=== PATIENT | male | born 1970 | race Two or more races ===

== ENCOUNTER 2019-09-27 11:40 | Emergency (ER) | payer MEDICAID ==
[~2019-09-27] VITALS: Ht 185.4 cm; Wt 88.9 kg
[2019-09-27] MEDS ORDERED: SODIUM CHLORIDE 0.9% 1,000 ML IVB ONE (12:12)
[2019-09-27] MEDS ORDERED: PANTOPRAZOLE 40 MG/10 ML VIAL INJ IV STA (12:12)
[2019-09-27] MEDS ORDERED: PROCHLORPERAZINE EDISYLATE 5 MG/ML 2ML VIAL IV ONE (12:15)
[2019-09-27] MEDS ORDERED: MORPHINE SULFATE 4 MG/ML SYR/VIAL IV ONE (12:15)
[2019-09-27 12:58] LABS: Urine Bacteria NONE SEEN /hpf (None Seen); Urine Blood Negative /uL (Negative); Urine Specific Gravity 1.008 (1.001-1.035); Urine WBC None Seen /hpf (0 - 3)
[2019-09-27 13:10] LABS: Amphetamine Screen, Urine NEGATIVE (NEGATIVE); Barbiturate Scree,Urine NEGATIVE (NEGATIVE); Benzodiazephine Screen, Urine NEGATIVE (NEGATIVE); Cannabinoid Screen, Urine POSITIVE (NEGATIVE); Cocaine Screen, Urine NEGATIVE (NEGATIVE); Opiate Scree,Urine NEGATIVE (NEGATIVE); Phencyclidine Screen, Urine NEGATIVE (NEGATIVE)
[2019-09-27 13:33] LABS: Basophils # (auto) 0.1 10 ^3/uL (0-0.2); Eosinophils # (auto) 0 10 ^3/uL (0-0.8); Eosinophils % (auto) 0.2 % (0.0-7.0); Monocytes # (auto) 0.6 10 ^3/uL (0-1.3); Neutrophils # (auto) 6.6 10 ^3/uL (1.6-8.6); Nucleated Red Blood Cells % 0.1 %
[2019-09-27 13:35] LABS: Basophils % (auto) 0.7 % (0.0-2.0); Hematocrit 50.3 % (41.0-53.0); Hemoglobin 16.2 g/dL (13.5-17.5); Lymphocytes # (auto) 2.2 10 ^3/uL (0.4-5.4); Mean Corpuscular Hemoglobin 24.8 pg (28.0-32.0); Mean Corpuscular Hgb Conc. 32.2 g/dL (32.0-36.0); Mean Corpuscular Volume 77.2 fL (80.0-100.0); Monocytes % (auto) 6.5 % (0.0-12.0); Neutrophils % (auto) 69.6 % (37.0-80.0); Platelet Count (auto) 324 10^3/uL (140-450); Red Blood Cells 6.52 10^6/uL (4.5-5.90); Red Cell Distribution Width 17.4 % (11.8-14.3); White Blood Cell 9.5 10^3/uL (4.4-10.8)
[2019-09-27 13:51] LABS: Albumin 4.2 g/dL (3.4-5.0); Anion Gap 3 (5-15); Blood Urea Nitrogen 9 mg/dL (7-18); Calcium 9.7 mg/dL (8.5-10.1); Carbon Dioxide 29 mmol/L (21-32); Chloride 105 mmol/L (98-107); Glucose 101 mg/dL (74-106); Lipase 108 U/L (73-393); Potassium 4.4 mmol/L (3.5-5.1); Sodium 137 mmol/L (136-145)
[2019-09-27 13:57] LABS: Alanine Aminotransferase 70 U/L (16-61); Alkaline Phosphatase 76 U/L (45-117); Aspartate Aminotransferase 27 U/L (15-37); BUN/Creatinine Ratio 6.2; Bilirubin, Total 0.7 mg/dL (0.2-1.0); GFR African American 67 mL/min; GFR Non-African American 55 mL/min
[2019-09-27 14:45] VITALS: BP 147/96
== END 2019-09-27 14:48 | disposition home or self-care (01) ==
LOC: ER 11:40
DX: F12.188 Cannabis abuse with other cannabis-induced disorder (principal); R10.13 Epigastric pain; R11.2 Nausea with vomiting, unspecified
CPT/HCPCS: 36415; 74176; 80053; 80307; 81001; 83690; 84484; 85025; 93005

== ENCOUNTER 2025-03-29 07:10 | Emergency (ER) | payer MEDICAID ==
[~2025-03-29] VITALS: Ht 185.4 cm; Wt 100.0 kg
[2025-03-29 07:13] VITALS: TEMP 97.5
--- NOTE | 2025-03-29 07:27 | ED.PDOC ---
Musculoskeletal HPI Comments A 55 YEAR OLD MALE PRESENTS TO THE ED WITH COMPLAINT OF LEG PAIN. PATIENT REPORTS THAT HE HAS BEEN EXPERIENCING RIGHT LEG PAIN THAT RADIATES DOWN HIS LEG FOR THE PAST 2 DAYS. PATIENT RELAYS THAT HE HAS HISTORY OF CHRONIC LOWER BACK PAIN AND SCIATICA X 2 YEARS, CURRENTLY GOING TO PAIN MANAGEMENT. PATIENT STATES HE IS PRESCRIBED NORCO AND GABAPENTIN, BUT NO RELIEF HAS BEEN NOTED WHEN TAKING HIS MEDICATION AT HOME. PATIENT DENIES FALL, INJURY, SHORTNESS OF BREATH, CHEST PAIN, ABDOMINAL PAIN, NAUSEA, VOMITING, HEADACHE, OR OTHER COMPLAINTS. NO OTHER SYMPTOMS OR MODIFYING FACTORS AT THIS TIME. PATIENT IS ALERT, ORIENTED X 4, AND HAS STEADY GAIT. Chief Complaint: Lower Extremity Time Seen by MD: 07:24 Reviewed Notes: Nurses Notes, Medications, Allergies Allergies: Coded Allergies: NO KNOWN ALLERGIES (Unverified , 06/02/17) Home Meds Active Scripts Prednisone (Prednisone) 20 Mg Tab, 40 MG PO DAILY, #20 TAB Prov:ROSA MEYERSSHERON AUSTIN 03/29/25 Information Source: Patient Mode of Arrival: Wheelchair Location: Right Extremity Location: Leg Timing: Days Prehospital treatment: None Severity: Moderate Able to Move Extremity: No Bear Weight: Limited Pain: Moderate Mechanism: Spontaneous Circumstances: Spontaneous Onset of Symptoms: Spontaneous Symptoms: Pain DVT Risk Factors: NONE Associated signs and symptoms: Leg pain, Other (BACK PAIN ) Past Medical History PAST MEDICAL HISTORY: HTN Past Medical History (Other): SCIATICA, CHRONIC LOWER BACK PAIN Surgical History: Denies all surgeries Family History Family History: Reviewed,noncontributory to illness Family History (Other): Sickle cell disease Social History Smoker: Cigarettes, Less Than 1 Pack/Day Alcohol: Occasionally Drugs: Marijuana Lives In: Home Constitutional: denies: chills, diaphoresis, fatigue, fever, malaise, sweats, weakness, others EENTM: denies: blurred vision, double vision, ear bleeding, ear discharge, ear drainage, ear pain, ear ringing, eye pain, eye redness, hearing loss, mouth pain, mouth swelling, nasal discharge, nose bleeding, nose congestion, nose pain, photophobia, tearing, throat pain, throat swelling, voice changes, others Respiratory: denies: cough, hemoptysis, orthopnea, SOB at rest, shortness of breath, SOB with excertion, stridor, wheezing, others Cardiovascular: denies: chest pain, dizzy spells, diaphoresis, Dyspnea on exertion, edema, irregular heart beat, left arm pain, lightheadedness, palpitations, PND, syncope, others Gastrointestinal: denies: abdomen distended, abdominal pain, blood streaked bowels, constipated, diarrhea, dysphagia, difficulty swallowing, hematemesis, melena, nausea, poor appetite, poor fluid intake, rectal bleeding, rectal pain, vomiting, others Genitourinary: denies: burning, dysuria, flank pain, frequency, hematuria, incontinence, penile discharge, penile sore, pain, testicle pain, testicle swelling, urgency, others Neurological: denies: dizziness, fainting, headache, left sided numbness, left sided weakness, numbness, paresthesia, pre-existing deficit, right sided numbness, right sided weakness, seizure, speech problems, tingling, tremors, weakness, others Musculoskeletal: reports: back pain, muscle pain, others (RT LEG PAIN); denies: gout, joint pain, joint swelling, muscle stiffness, neck pain Integumetry: denies: bruises, change in color, change in hair/nails, dryness, laceration, lesions, lumps, rash, wounds, others Allergic/Immunocompromised: denies: Difficulty Healing, Frequent Infections, Hives, Itching, others Hematologic/Lymphatic: denies: anemia, blood clots, easy bleeding, easy bruising, swollen glands, others Endocrine: denies: excessive hunger, excessive sweating, excessive thirst, excessive urination, flushing, intolerance to cold, intolerance to heat, unexplained weight gain, unexplained weight loss, others Psychiatric: denies: anxiety, bipolar disorder, depression, hopeless, panic disorder, schizophrenia, sleepless, suicidal, others All Other Systems: Reviewed and Negative Physical Exam General Appearance: No Apparent Distress, Normal HEENT: Normal ENT Inspection, PERRL/EOMI Neck: Full Range of Motion, Non-Tender, Normal, Normal Inspection Respiratory: Chest Non-Tender, Lungs Clear, No Accessory Muscle Use, No Respiratory Distress, Normal Breath Sounds Cardiovascular: No Edema, No JVD, No Murmur, No Gallop, Normal Peripheral Pulses, Regular Rate/Rhythm Breast Exam: Deferred Gastrointestinal: No Organomegaly, Non Tender, No Pulsatile Mass, Normal Bowel Sounds, Soft Genitalia: Deferred Pelvic: Deferred Rectal: Deferred Extremities: No calf tenderness, Normal capillary refill, Normal inspection, Normal range of motion, Non-tender, No pedal edema, Other (NO RIGHT LOWER LEG REDNESS, SWELLING AND DVT SIGNS. ) Musculoskeletal : Location: Bilateral Extremity Location: Back Apperance: Tenderness: Moderate (TENDERNESS AND MUSCLE SPASM ON LOWER BACK, NO BONY TENDERNESS, SWELLING AND DEFORMITY. ) Neurologic: Alert, card player II-XII nml as Tested, No Motor Deficits, Normal Affect, Normal Mood, No Sensory Deficits Cerebellar Function: Normal Reflexes: Normal Skin: Dry, Normal Color, Warm Peripheral Pulses: 2+ carotid (R), 2+ carotid (L), 2+ dorsalis pedis (R), 2+ dorsalis pedis (L) Lymphatic: No Adenopathy Was a procedure done? Was a procedure done?: No Differential Diagnosis EXT Differential Diagnosis: Sprain, Contusion, Strain, Other (DDD OF LOW BACK, LUMBAR RADICULOPATHY) Other Differential Diagnosis SCIATICA X-Ray, Labs, Meds, VS Vital Signs Date Time Temp Pulse Resp B/P (MAP) Pulse Ox O2 Delivery O2 Flow Rate FiO2 03/29/25 08:29 73 16 150/90 03/29/25 07:48 75 19 128/88 (101) 100 03/29/25 07:47 75 19 128/88 03/29/25 07:13 97.5 86 16 160/86 100 97.5 Current Medications Medications (Trade) Dose Ordered Sig/Nikita Route Start Time Stop Time Status Last Admin Hydromorphone HCl (Dilaudid Injection) 2 mg ONCE ONCE IM 03/29/25 07:30 03/29/25 07:31 DC 03/29/25 07:47 Ondansetron HCl (Zofran Po) 4 mg ONCE ONCE PO 03/29/25 07:30 03/29/25 07:31 DC 03/29/25 07:47 PATIENT: SONDRA BLAKET: [id number]: [id number] : 1970 LOC: ER ROOM / BED: / AGE / SEX: 55 / M ADM STATUS: DEP ER SERVICE 5 ORDERING PHYSICIAN: BRIGITTE MEYERS PROCEDURE(s): LUMB2 - LUMBAR SPINE 3 VIEW REASON: LOW BACK PAIN TO RIGHT THIGH ORDER NUMBER(s): [id number], ACCESSION NUMBER(s): [id number] INDICATION: LOW BACK PAIN TO RIGHT THIGH TECHNIQUE: Frontal and lateral views of the lumbar spine were obtained. COMPARISON: None FINDINGS: The vertebral body heights are maintained. There is intervertebral disc space narrowing at L5-S1 with ventral osteophytes. Facet arthropathy noted at L4-L5 and L5-S1. Atherosclerotic calcifications in the lower abdominal aorta. IMPRESSION: 1. No acute osseous abnormality. 2. Lower lumbar spondylosis. ATED BY: DIANA SOLIS MD DICTATED DATE/TIME: 03/29/25826 SIGNED BY: DIANA SOLIS MD SIGNED DATE/TIME: 03/29/25826 CC: X-Ray, Labs, Meds, VS Comment EXTERNAL MEDICAL RECORDS REVIEWED: [NONE] INDEPENDENT HISTORIANS: [NONE] SOCIAL DETERMINANTS OF HEALTH: [NONE] LABS ORDERED: NONE REVIEWED AND INTERPRETED RESULTS: L-SPINE XR IMAGING ORDERED: L-SPINE XR INTERPRETED BY ME. DEGENERATIVE CHANGES L5-S1 NOTED. NO ACUTE FINDINGS. NO FRACTURES OR DISLOCATION. PENDING RADIOLOGIST REPORT. TREATMENTS ORDERED: DILAUDID 2MG IM AND ZOFRAN 4MG PO PROCEDURES PERFORMED: NONE CRITICAL CARE TIME: NONE I HAVE DISCUSSED THE PATIENT WITH THE ATTENDING PHYSICIAN DR. MCGRATH AND HE AGREES WITH THE PATIENT'S PLAN OF CARE AND DISPOSITION. BASED ON HISTORY OF PRESENT ILLNESS, AND PHYSICAL EXAM, PATIENT WILL BE DISCHARGED HOME. DISCUSSED PLAN FOR DISCHARGE HOME WITH RX [PREDNISONE]. MEDICATION WARNINGS GIVEN. SHARED DECISION MAKING: DISCUSSED WITH PATIENT THAT THEIR WORKUP WAS NORMAL. PATIENT INSTRUCTED TO FOLLOW UP WITH PRIMARY CARE PROVIDER IN 1-2 DAYS FOR RE- EVALUATION OF SYMPTOMS. PATIENT VERBALIZES UNDERSTANDING TO RETURN TO ED FOR NEW OR WORSENING SYMPTOMS OR IF FOLLOW UP WITH PCP CANNOT BE OBTAINED. PATIENT FEELS COMFORTABLE GOING HOME AT THIS TIME. ALL QUESTIONS ADDRESSED AT TIME OF DISCHARGE. Time of 1ST Reevaluation: 08:28 Reevaluation 1ST: Improved Patient Education/Counseling: Diagnosis, Treatment, Need For Follow Up Family Education/Counseling: Diagnosis, Treatment, Need For Follow Up Medical Screening: No EMC Exist At This Time Departure 1 Departure Time of Disposition: 08:28 Impression: Primary Impression: DDD (degenerative disc disease), lumbosacral Qualified Codes: M51.372 - Other intervertebral disc degeneration, lumbosacral region with discogenic back pain and lower extremity pain Additional Impression: Lumbar radiculopathy Disposition: HOME / SELF CARE / HOMELESS Condition: Stable Additional Instructions: FOLLOW-UP WITH PCP IN 1 TO 2 DAYS. TAKE MEDICATIONS PRESCRIBED. RETURN TO ED FOR ANY NEW OR WORSENING SYMPTOMS. e-Prescriptions Prednisone (Prednisone) 20 Mg Tab 40 MG PO DAILY, #20 TAB Prov: BRIGITTE MEYERS 03/29/25 Discharged With: Self, Relative Critical Care Note Critical Care Time?: No Stability Stability form required: No Heart Score Heart Score: Heart Score Response (Comments) Value History N/A 0 EKG N/A 0 Age N/A 0 Risk Factors N/A 0 Troponin N/A 0 Total 0 I personally scribed for BRIGITTE MEYERS ([email or web address]) on 03/29/25 at 07:27. Electronically submitted by Clarence Palmer ([email or web address]). I personally scribed for BRIGITTE MEYERS ([email or web address]) on 03/29/25 at 08:23. Electronically submitted by Clarence Palmer ([email or web address]). BRIGITTE MEYERS Mar 29, 2025 07:27
[2025-03-29] MEDS: HYDROmorphone HCL 2 MG/ML VL/or syr IM ONE (07:47)
[2025-03-29] MEDS: ONDANSETRON ODT 4 MG TAB PO ONE (07:47)
[2025-03-29 07:48] VITALS: O2SAT 100
[2025-03-29] MEDS ORDERED: PRED20TA2 PO (08:20)
[2025-03-29 08:29] VITALS: BP 150/90; PULSE 73; RESP 16
--- NOTE | 2025-03-29 08:30 | DVH ---
INDICATION: LOW BACK PAIN TO RIGHT THIGH TECHNIQUE: Frontal and lateral views of the lumbar spine were obtained. COMPARISON: None FINDINGS: The vertebral body heights are maintained. There is intervertebral disc space narrowing at L5-S1 with ventral osteophytes. Facet arthropathy noted at L4-L5 and L5-S1. Atherosclerotic calcifications in the lower abdominal aorta. IMPRESSION: 1. No acute osseous abnormality. 2. Lower lumbar spondylosis.
== END 2025-03-29 08:33 | disposition home or self-care (01) ==
LOC: ER 07:10
DX: M51.372 Other intervertebral disc degeneration, lumbosacral region with discogenic back pain and lower extremity pain (principal); M47.26 Other spondylosis with radiculopathy, lumbar region; I10 Essential (primary) hypertension; F17.210 Nicotine dependence, cigarettes, uncomplicated
CPT/HCPCS: 72100; 96372; 99283; J1171; Q0162